=== PATIENT | female | born 1970 | race Caucasian/White ===

== ENCOUNTER 2019-11-28 18:09 | Emergency (ER) | payer OTHER, SELFPAY ==
[2019-11-28 18:15] VITALS: BP 132/53; PULSE 86; RESP 20; TEMP 36.6; O2SAT 98
--- NOTE | 2019-11-28 18:38 | ED.GENADULT ---
HPI - General Adult General Chief complaint: Chest Pain Stated complaint: Left Breast Pain/Dizzy/low energy Time Seen by Provider: 11/28/19 18:38 Source: patient and RN notes reviewed Mode of arrival: ambulatory Limitations: no limitations History of Present Illness HPI narrative: This is a 49 years old female presented office with multiple complaint. States, she has been feeling miserable and in a lot of pain. States, she could not sleep at all last night. States, she has been feeling dizzy, fatigue, and in constant pain. Her left breast pain has been going on for 1 month and it has gotten worse for the last 2 weeks with shortness of breath. Pain went up from 6-10 at times. Usually pain is worse at nighttime. Denies history of blood clot or recent surgery. Her mother had history of breast cancer, she is worried that she might also have breast cancer however she cannot get a family doctor for another 3 months. Related Data Home Medications Medication Instructions Recorded Confirmed No Home Medications 11/28/19 11/28/19 Allergies Allergy/AdvReac Type Severity Reaction Status Date / Time No Known Allergies Allergy Verified 11/28/19 18:43 Review of Systems Review of Systems: Narrative: CONSTITUTIONAL: Denies fever. Reports feeling fatigue and weak. Denies unintentional weight loss. EYES: Denies visual changes ENT: Denies congestion CARDIOVASCULAR: Denies palpitation. Reports left side breast/chest pain RESPIRATORY: Reports hard to breath because of her breast pain GASTROINTESTINAL: Denies abdominal pain, nausea, vomiting GENITOURINARY: Denies urinary symptoms SKIN: Denies rash MUSCULOSKELETAL: Denies acute back pain NEUROLOGIC: Reports dizziness. Denies passing out. PMFSH Past Medical History Medical History (Updated 11/28/19 @ 19:18 by GLENDY Tesfaye) No pertinent family history Family History Family History (Updated 11/28/19 @ 19:08 by GLENDY Tesfaye) Other Breast cancer Social History Social History (Updated 11/28/19 @ 19:09 by GLENDY Tesfaye) Smoking status: Never smoker Comments At time of signature, I agree with nursing past medical, surgical, social and family history. There is no relevant family history pertinent to the presenting complaint. Exam Narrative: Exam Narrative: GENERAL: This is a well-nourished, well-developed patient, in no apparent distress. EYES: MANUEL. EMOI. Sclera clear/white. Vision is grossly intact. EARS: External ears normal, auditory canals clear and without drainage, right TM noted fluid bubble, left TM normal without perforation. Hearing grossly intact. NOSE: External nose normal with no obvious nasal discharge, nares without redness, no rhinorrhea. THROAT: Mucous membranes moist, posterior pharynx clear. NECK: Neck supple, non-tender without lymphadenopathy, masses or thyromegaly. CARDIOVASCULAR: Regular rate and rhythm without murmurs, gallops, or rubs. RESPIRATORY: Clear to auscultation. Breath sounds equal bilaterally. No wheezes, rales, or rhonchi. GASTROINTESTINAL: Abdomen soft, non-tender, nondistended. Bowel sounds are active. No hepato-splenomegaly, or palpable masses. No guarding. SKIN: warm, intact with no suspicious lesions or rash NEURO: awake, alert, and oriented to person, place and time. There were no obvious focal neurologic abnormalities. Steady gait EXTREMITIES: Normal range of motion. No edema. No calf tenderness. [place] Coma Scale Eye Opening: Spontaneous 4 [place]is Coma Scale Motor: Obeys Commands 6 Alanis Coma Scale Verbal: Oriented 5 Chest: Breast/axilla inspection: normal inspection of the breasts and normal inspection of the axillae Breast/axilla palpation: normal palpation of the breasts (without obvious nodule; however patient appears uncomfortable and in pain ), normal palpation of the axillae and no axillary lymphadenopathy Course Vital Signs Vital signs: Vital Signs Temperature 97.9 F 11/28/19 18:
--- NOTE | 2019-11-28 19:11 | ECG_ITS ---
Measurements Intervals [place] Rate: 78 P: 55 [place]: 165 QRS: 15 QRSD: 84 T: 52 QT: 374 QTc: 427 Interpretive Statements SINUS RHYTHM NORMAL ECG Electronically Signed On 11-29-2019 9:30:27 CDT by Horace Butler D.O.
== END 2019-11-28 19:09 | disposition short-term general hospital (02) ==
PROVIDERS: Emergency Provider Nurse Practitioner
DX: N63.0 Unspecified lump in unspecified breast (principal); R53.1 Weakness
CPT/HCPCS: 93005; 99203; G0463

== ENCOUNTER 2021-01-17 08:18 | Emergency (ER) | payer OTHER, SELFPAY ==
--- NOTE | 2021-01-17 08:24 | ED.EYEPROB ---
HPI - Eye Problem General Chief complaint: Eye Problems Stated complaint: superglue residue on left eye Time Seen by Provider: 01/17/21 08:24 Source: patient and RN notes reviewed History of Present Illness HPI Narrative: Patient is a 50-year-old female who presents the urgent care with complaints of superglue residue in the left eye. Patient states that she thought she grabbed her Visine but grabbed a bottle of superglue. Patient states that she realized it immediately, pry the eye open, and flushed it out with a lot of Visine. Patient denies of any vision change. States that she believes there might be some residue in the eye or small scratch on the eye. 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 No other acute complaints. No acute distress noted. Patient aware of the plan of care. Some parts of this dictation were generated by voice recognition software and may contain typographical and/or grammatical inaccuracies. Related Data Allergies Allergy/AdvReac Type Severity Reaction Status Date / Time No Known Allergies Allergy Verified 01/17/21 08:33 Review of Systems Review of Systems: Narrative: CONSTITUTIONAL: Denies fever, chills, or sweats. EYES: Denies visual changes, redness, or discharge. Reports of possible superglue residue in the left eye ENT: Denies rhinorrhea, congestion, sore throat, or otalgia. CARDIOVASCULAR: Denies chest pain, palpitations, or edema. RESPIRATORY: Denies cough or dyspnea. GASTROINTESTINAL: Denies abdominal pain, nausea, vomiting, or diarrhea. GENITOURINARY: Denies dysuria or hematuria. SKIN: Denies rash or itching. MUSCULOSKELETAL: Denies back pain, joint pain, or myalgia. NEUROLOGIC: Denies headache, numbness, or weakness. All other systems reviewed are negative, except as documented in HPI. [facility] Past Medical History Medical History (Updated 01/17/21 @ 08:43 by GLENDY Loyd) No pertinent family history Family History Family History (Updated 11/28/19 @ 19:08 by GLENDY Tesfaye) Other Breast cancer Social History Social History (Updated 11/28/19 @ 19:09 by GLENDY Tesfaye) Smoking status: Never smoker Comments At the time of my signature, I reviewed and agree with the nursing past medical, surgical, social, and family history. There is no relevant family history pertinent to the patient complaint. Exam Narrative: Exam Narrative: GENERAL: This is a well-nourished, well-developed patient, in no apparent distress. HEAD: normocephalic, atraumatic. EYES: PERRL. Sclera clear/white. Vision is grossly intact. Mild injected conjunctivae to the left with obvious irritation from a continual rubbing. No discharge noted from the left eye. No obvious foreign body to the left eye. No matting to the left eye. EARS: External ears normal NOSE: External nose normal with no obvious nasal discharge, nares without redness, no rhinorrhea. THROAT: Mucous membranes moist NECK: Neck supple SKIN: warm, intact with no suspicious lesions or rash, good texture and turgor. NEURO: awake, alert, and oriented to person, place and time. There were no obvious focal neurologic abnormalities. EXTREMITIES: No clubbing, cyanosis, or edema. Course Vital Signs Vital signs: Vital Signs Temperature 97.6 F 01/17/21 08:25 Pulse Rate 86 01/17/21 08:25 Respiratory Rate 20 01/17/21 08:25 Blood Pressure 148/100 H 01/17/21 08:25 Pulse Oximetry 100 01/17/21 08:25 Temperature 97.6 F 01/17/21 08:25 Pulse Rate 86 01/17/21 08:25 Respiratory Rate 20 01/17/21 08:25 Blood Pressure 148/100 H 01/17/21 08:25 Pulse Oximetry 100 01/17/21 08:25 reviewed-patient is informed that they may have pre-hypertension or hypertension based on a blood pressure reading in the department. I recommend the patient call the primary care provider listed on their discharge instructions or a physician of their choice this week to ar
[2021-01-17 08:25] VITALS: BP 148/100; PULSE 86; RESP 20; TEMP 36.4; O2SAT 100
== END 2021-01-17 08:44 | disposition home or self-care (01) ==
PROVIDERS: Emergency Provider Nurse Practitioner Family
DX: H57.89 Other specified disorders of eye and adnexa (principal)
CPT/HCPCS: 99213; G0463